=== PATIENT | male | born 1985 | race Caucasian/White ===

== ENCOUNTER → 2017-09-18 | Outpatient (CLI) | payer BC ==
[2017-09-10 12:47] VITALS: BP 126/88
[~2017-09-18] MED LIST: VIBRAMYCIN100 MG PO
[2017-09-18 14:52] LABS: BASO # 0.1 (0.02-0.10); HEMATOCRIT 48.3 % (42.0-52.0); HEMOGLOBIN 16.2 g/dL (13.5-18.0); LYMPH# 4.2 (1.50-4.00); MEAN CELL VOLUME 91 fl (78-100); MEAN CORPUSCULAR HEMOGLOBIN 31 pg (27-31); MEAN CORPUSCULAR HGB CONC 34 g/dL (33-37); MEAN PLATELET VOLUME 9.7 fl (7.4-10.4); NEU # 6.9 (1.40-6.50); PLATELET COUNT 329 K/mm3 (130-400); RED BLOOD COUNT 5.32 M/mm3 (4.20-5.60); RED CELL DISTRIBUTION WIDTH 13.2 % (11.5-14.5); WHITE BLOOD COUNT 13.1 K/mm3 (4.8-10.8)
[2017-09-18 15:22] LABS: EOS # 0.7 (0.04-0.40); EOS % 5.5 % (0.0-4.0)
[2017-09-19 09:24] LABS: C-REACTIVE PROTEIN XXX
== END ==
LOC: LAB 14:21
PROVIDERS: Family Medicine
DX: T78.3XXD Angioneurotic edema, subsequent encounter (principal); R10.9 Unspecified abdominal pain; K52.9 Noninfective gastroenteritis and colitis, unspecified; Z88.1 Allergy status to other antibiotic agents

== ENCOUNTER 2023-10-26 17:53 | Emergency (ER) | payer BC ==
[~2023-10-26 17:53] MED LIST changes: +EPIPEN 2-PAK1 MG/ML MR; +Loperamide 2 MG CAP PO ONE; +NS 1,000 ML IV ONE; +Ondansetron 4 MG/2 ML VIAL IV ONE; +PEPCID40 M1 PO; +PREDNISONE20 M1 PO
[2023-12-01 06:21] LABS: BASO # 0.03 K/mm3 (0.02-0.10); EOS # 0.23 K/mm3 (0.04-0.40); EOS % 1.4 % (0.0-4.0); HEMOGLOBIN 19.5 g/dL (13.5-18.0); LYMPH# 1.54 K/mm3 (1.50-4.00); MEAN CELL VOLUME 91 fl (78-100); MEAN CORPUSCULAR HEMOGLOBIN 31 pg (27-31); MEAN CORPUSCULAR HGB CONC 34 g/dL (33-37); MEAN PLATELET VOLUME 9.8 fl (7.4-10.4); MONO # 0.65 K/mm3 (0.20-0.80); NEU # 14.11 K/mm3 (1.40-6.50); PLATELET COUNT 313 K/mm3 (130-400); RED BLOOD COUNT 6.38 M/mm3 (4.20-5.60); RED CELL DISTRIBUTION WIDTH 13.2 % (11.5-14.5); WHITE BLOOD COUNT 16.7 K/mm3 (4.8-10.8)
[2023-12-01 06:28] LABS: CALCIUM 10.1 mg/dL (8.3-10.5); TOTAL BILIRUBIN 0.4 mg/dL (0.2-1.2); TOTAL PROTEIN 8.4 g/dL (6.4-8.3)
== END 2023-10-26 22:40 | disposition home or self-care (01) ==
LOC: ED 17:53
PROVIDERS: Physician Assistant
DX: R11.2 Nausea with vomiting, unspecified (principal); R19.7 Diarrhea, unspecified
CPT/HCPCS: J0744; J1836; J2405; J7030